=== PATIENT | male | born 1980 | race Caucasian/White ===

== ENCOUNTER → 2022-08-13 | Outpatient (CLI) | payer OTHER ==
[~2022-08-13] MED LIST: CARAFATE1 GM/10 ML PO; CELEXA10 MG PO; CETRAXAL0.2% OT; CONTRAVE1 TER PO; DEXILANT30 MG PO; DIOVAN 12.5 MG-1 TAB PO; NEXIUM20 MG PO; ZOFRAN4 MG PO
== END | disposition home or self-care (01) ==
LOC: RAD 13:35
PROVIDERS: ATTEND Chiropractor Orthopedic
DX: M51.36 Other intervertebral disc degeneration, lumbar region (principal); M99.03 Segmental and somatic dysfunction of lumbar region